=== PATIENT | male | born 1960 | race Caucasian/White ===

== ENCOUNTER 2020-07-02 01:32 | Outpatient (CLI) | payer OTHER, SELFPAY ==
[2020-07-02 19:05] LABS: SARS-CoV-2 RNA PCR Negative
== END 2020-07-02 01:33 | disposition home or self-care (01) ==
LOC: ANHCOVIDDT 01:33
PROVIDERS: PCP Internal Medicine; Visit Provider Internal Medicine Gastroenterology
DX: Z01.812 Encounter for preprocedural laboratory examination (principal); Z20.828 Contact with and (suspected) exposure to other viral communicable diseases
CPT/HCPCS: 87635; C9803; U0003

== ENCOUNTER 2020-07-04 00:27 | Day surgery (SDC) | payer OTHER, SELFPAY ==
[2020-06-13 14:57] VITALS: BMI 29.7
--- NOTE | 2020-07-03 07:59 | P.PNAN_ITS ---
Anes - Initial Pre Proc Eval Procedure: Operation Date: 07/04/20 08:00 Proposed Procedures p Colonoscopy - Carlos Hart MD Date/Time: 07/03/20 07:59 Surgeon: Carlos Hart MD Pre Op Diagnosis: diverticulitis Patient Data Age: 59 Gender: M Height: 1.88 m Weight: 105 kg Allergies Allergy/AdvReac Type Severity Reaction Status Date / Time No Known Allergies Allergy Unknown Verified 07/04/20 06:56 Home Medications Medication Instructions Recorded Confirmed Type tadalafil 2.5 mg PO DAILY 06/13/20 06/24/20 History Patient hx anesthesia problems: none Family hx anesthesia problems: none [facility] Past Medical History Medical History (Updated 07/03/20 @ 08:00 by Balaji Payton DO) Diverticulitis 04/2020 Social History Social History Smoking status: Never smoker Alcohol intake: current Drinks per week: 5 Alcohol use details: BEERS Substance use: never Substance use type: does not use Spiritual care concerns: No Anes - Eval Final PreProcedure Day of Procedure 07/03/20 07:59 Patient weight: obese Heart: regular rate and rhythm Lungs: clear to auscultation and normal air movement Airway: Mallampati scale Neurological: alert and oriented Last oral intake: >/= 8 hours ASA classification: II Emergent: no Anesthetic plan: proceed Anesthesia type and monitoring: general GIVS and standard monitoring Informed Consent: The patient's anesthetic plan and its attendant risks and benefits were discussed with the patient/family/POA. Questions were solicited and answers provided to the satisfaction of the patient/family/POA.
[2020-07-04 06:57] VITALS: BP 116/87; PULSE 62; RESP 12; TEMP 36.2; O2SAT 96
--- NOTE | 2020-07-04 07:06 | P.HP_ITS ---
History of Present Illness History of Present Illness Consent: Risks, benefits, and alternatives have been discussed and questions answered. Patient agrees to proceed with procedure. Chief complaint: diverticulitis Narrative: Mohan Kearns is a 59 year old W male referred for colonoscopy secondary to recent history of diverticulitis which has resolved with antibiotic therapy. CT scan was performed in [place] and I do not have access to this. Patient also has a history of colon polyps last colonoscopy was 6 years ago at which time a villous adenoma was removed from the cecum. [facility] Past Medical History Medical History (Updated 07/03/20 @ 08:00 by Balaji Payton DO) Diverticulitis 04/2020 Social History Social History Smoking status: Never smoker Alcohol intake: current Drinks per week: 5 Alcohol use details: BEERS Substance use: never Substance use type: does not use Spiritual care concerns: No Meds Home Medications and Allergies Home Medications Medication Instructions Recorded Confirmed Type tadalafil 2.5 mg PO DAILY 06/13/20 06/24/20 History Allergies Allergy/AdvReac Type Severity Reaction Status Date / Time No Known Allergies Allergy Unknown Verified 07/04/20 06:56 Vital Signs Vital Signs - 24 hr 07/04/20 06:57 Temperature 36.2 C L Pulse Rate 62 Respiratory Rate 12 Blood Pressure 116/87 Pulse Oximetry 96 Exam Const: Orientation/consciousness: patient oriented x3 Resp: Auscultation: clear to auscultation bilaterally Cardio: Rate: regular rate Rhythm: regular rhythm Heart sounds: no mu rmurs GI: GI Palp: Yes Soft to palpation, No Tenderness to palpation present (GI), Yes No hepatosplenomegaly present and No Palpable mass present Auscultation: normal bowel sounds Neuro: General: patient oriented x3 and no focal motor deficits Extrem: General: no pedal edema Assessment and Plan Additional Plan Screening colonoscopy secondary history of colonic polyps. Recent episode of diverticulitis
[2020-07-04] MEDS: LACTATED RINGERS 1,000 ML 150 ML IV CONT (07:11)
[2020-07-04 08:26] VITALS: BP 98/70; PULSE 66; RESP 17; O2SAT 96
[2020-07-04 08:36] VITALS: BP 101/68; PULSE 63; RESP 15; O2SAT 96
[2020-07-04 08:46] VITALS: BP 122/60; PULSE 65; RESP 18; O2SAT 96
== END 2020-07-04 09:35 | disposition home or self-care (01) ==
PROVIDERS: PCP Internal Medicine; Visit Provider Internal Medicine Gastroenterology
PROC: 0DJD8ZZ Inspection of Lower Intestinal Tract, Via Natural or Artificial Opening Endoscopic (ICD-10-PCS; CPT 45378; principal; 2020-07-04 08:00)
DX: Z12.11 Encounter for screening for malignant neoplasm of colon (principal); K57.30 Diverticulosis of large intestine without perforation or abscess without bleeding; K64.8 Other hemorrhoids; Z86.010 Personal history of colon polyps; E66.9 Obesity, unspecified; Z68.30 Body mass index [BMI] 30.0-30.9, adult
CPT/HCPCS: 45378; J2704; J7120